=== PATIENT | male | born 1945 | race Caucasian/White ===

== ENCOUNTER → 2020-03-24 | Outpatient (CLI) | payer OTHER ==
[~2020-03-24] MED LIST: ALBU90AE INH; LISI-167 PO
[2020-03-24 10:09] LABS: BASOPHILS # (AUTO) 0.04 x10^3/uL (0-0.1); BASOPHILS % (AUTO) 0 % (0-1); EOSINOPHILS # (AUTO) 0.07 x10^3/uL (0-0.4); EOSINOPHILS % (AUTO) 1 % (1-7); LYMPHOCYTES % (AUTO) 25 % (22-44); MD NO; MEAN CORPUSCULAR HEMOGLOBIN 29.1 pg (27.5-34.5); MEAN CORPUSCULAR HGB CONC 32.8 g/dL (33.2-36.2); MEAN CORPUSCULAR VOLUME 88.5 fL (81-97); MEAN PLATELET VOLUME 8.6 fL (7.4-10.4); MONOCYTES # (AUTO) 0.83 x10^3/uL (0.2-0.8); MONOCYTES % (AUTO) 10 % (2-9); NEUTROPHILS % (AUTO) 64 % (42-75); PLATELET COUNT 302 x10^3/uL (130-400); RED BLOOD COUNT 5.45 x10^6/uL (4.38-5.82); RED CELL DISTRIBUTION WIDTH 13.8 % (9.4-14.8)
[2020-03-24 10:39] LABS: ALBUMIN 3.4 g/dL (3.4-5.0); ANION GAP 6 mmol/L (5-15); CALCIUM 9.5 mg/dL (8.5-10.1); CHLORIDE 105 mmol/L (98-107)
[2020-03-24 10:43] LABS: ALANINE AMINOTRANSFERASE 25 U/L (12-78); ALKALINE PHOSPHATASE 60 U/L (45-117); BILIRUBIN,TOTAL 0.4 mg/dL (0.2-1.0); TOTAL PROTEIN 7.5 g/dL (6.4-8.2)
== END | disposition home or self-care (01) ==
LOC: STAR 08:44
PROVIDERS: ATTEND Urology
DX: Z01.818 Encounter for other preprocedural examination (principal); C61 Malignant neoplasm of prostate
CPT/HCPCS: 36415; 80053; 85025; 93005

== ENCOUNTER 2020-03-26 08:00 | Outpatient (CLI) | payer OTHER ==
[~2020-03-26] VITALS: Ht 182.9 cm; Wt 75.0 kg
== END 2020-03-26 23:59 | disposition home or self-care (01) ==
LOC: STAR 08:00 → EDSTATUS 03-30 12:00
PROVIDERS: ATTEND Urology
DX: Z01.818 Encounter for other preprocedural examination (principal); Z11.59 Encounter for screening for other viral diseases
CPT/HCPCS: 36415; 87635